=== PATIENT | male | born 1950 | race Two or more races ===

== ENCOUNTER 2020-05-06 17:22 | Emergency (ER) | payer OTHER ==
[~2020-05-06] VITALS: Ht 172.7 cm; Wt 95.3 kg
== END 2020-05-06 19:36 | disposition home or self-care (01) ==
LOC: ER 17:22
DX: J06.9 Acute upper respiratory infection, unspecified (principal); Z03.818 Encounter for observation for suspected exposure to other biological agents ruled out

== ENCOUNTER → 2020-05-06 | Emergency (ER) | payer OTHER ==
[~2020-05-06] VITALS: Ht 172.7 cm; Wt 95.3 kg
== END | disposition left against medical advice (07) ==
LOC: ER 14:44
DX: Z53.20 Procedure and treatment not carried out because of patient's decision for unspecified reasons (principal)